=== PATIENT | female | born 1985 | race Caucasian/White ===

== ENCOUNTER 2017-08-24 08:40 | Emergency (ER) | payer MEDICAID, OTHER ==
[2017-08-24 08:56] VITALS: BP 123/76; PULSE 81; RESP 16; TEMP 97.8; O2SAT 100
--- NOTE | 2017-08-24 09:05 | ED PDOC ---
Lower Extremity Pain/Injury Time Seen by Provider: 08/24/17 08:45 Chief Complaint (Nursing): Lower Extremity Problem/Injury Chief Complaint (Provider): Lower Extremity Problem/Injury History Per: Patient History/Exam Limitations: no limitations Onset/Duration Of Symptoms: Days (x1 month) Additional Complaint(s): 31 y/o female presents to the emergency department with a complaint of a right foot pain x1 month. Patient states she injury her right foot and has been ambulating with pain and swelling since. Denies any further medical complaints. PMD: Dr. Leroy Conner MD Past Medical History Reviewed: Historical Data, Nursing Documentation, Vital Signs Vital Signs: Last Vital Signs Temp 97.8 F 08/24/17 08:52 Pulse 81 08/24/17 08:52 Resp 16 08/24/17 08:52 BP 123/76 08/24/17 08:52 Pulse Ox 100 08/24/17 08:52 - Medical History PMH: Arthritis, Asthma, Back Problems, Depression - Surgical History Surgical History: (2) - Family History Family History: States: Diabetes - Social History Current smoker - smoking cessation education provided: No Ex-Smoker (has not smoked in the last 12 months): Yes Alcohol: None Drugs: Denies - Home Medications Home Medications: Ambulatory Orders Medication Instructions Recorded Famotidine [Pepcid] 20 mg PO BID #10 tab 01/03/15 Ondansetron [Zofran] 4 mg PO Q8H PRN #10 tab 01/03/15 Cephalexin [cephalexin] 500 mg PO BID #20 cap 04/08/15 Ibuprofen [Motrin] 600 mg PO Q8 #30 tab 04/08/15 Naproxen 375 mg PO Q8 PRN #21 tab 08/05/15 Oxycodone HCl/Acetaminophen 1 tab PO Q6 PRN #10 tab 08/05/15 [Percocet 325 mg-5 mg] diaZEpam [Valium] 5 mg PO Q6 PRN #14 tab 08/05/15 Azithromycin [Zithromax Z-Aidan] 250 mg PO DAILY #1 packet 01/03/16 Albuterol HFA [Ventolin HFA 90 1 - 2 puff IH Q4 PRN #1 inhaler 04/14/16 mcg/actuation (8 g)] Azithromycin [Zithromax] 250 mg PO DAILY #6 tab 04/14/16 guaiFENesin [Mucinex LA] 600 mg PO TID PRN #15 tab 04/14/16 Naproxen [Naprosyn] 500 mg PO Q12H #20 tab 08/24/17 - Allergies Allergies/Adverse Reactions: Allergies Allergy/AdvReac Type Severity Reaction Status Date / Time No Known Allergies Allergy Verified 08/24/17 08:52 Review of Systems ROS Statement: Except As Marked, All Systems Reviewed And Found Negative Musculoskeletal: Positive for: Foot Pain (Right) Physical Exam - Reviewed Nursing Documentation Reviewed: Yes Vital Signs Reviewed: Yes - Physical Exam Appears: Positive for: Non-toxic, No Acute Distress Head Exam: Positive for: ATRAUMATIC, NORMAL INSPECTION, NORMOCEPHALIC Skin: Positive for: Normal Color, Warm, Dry Extremity: Positive for: Tenderness (right foot swelling and tenderness to the dorsum and lateral region. ), Swelling. Negative for: Other (No ecchymosis noted. ) Neurologic/Psych: Positive for: Alert, Oriented (x3) - ECG O2 Sat by Pulse Oximetry: 100 (RA) Pulse Ox Interpretation: Normal Medical Decision Making Medical Decision Making: Time: 09:00 Initial Impression: Right foot pain s/p injury Initial Plan: --Ankle x-ray --Right foot x-ray --Reevaluation Scribe Attestation: Documented by Jacqui Rebollar, acting as a scribe for Curtis Garcia MD. Provider Scribe Attestation: All medical record entries made by the Scribe were at my direction and personally dictated by me. I have reviewed the chart and agree that the record accurately reflects my personal performance of the history, physical exam, medical decision making, and the department course for this patient. I have also personally directed, reviewed, and agree with the discharge instructions and disposition. Disposition - Clinical Impression Clinical Impression: Foot fracture - Patient ED Disposition Is Patient to be Admitted: No Counseled Patient/Family Regarding: Studies Performed, Diagnosis, Need For Followup, Rx Given - Disposition Referrals: Podiatry Clinic [Outside] Disposition: Routine/Home Disposition Time: 10:59 Condition: FAIR Prescriptions: Naproxen [Naprosyn] 500 mg PO Q12H #20 tab Instructions: Foot Fracture in Adults (ED) Forms: [employer] (Italian)
--- NOTE | 2017-08-24 10:40 | CP.PCM.PN ---
Subjective - Date & Time of Evaluation Date of Evaluation: 08/24/17 Time of Evaluation: 10:36 - Subjective Subjective: 31 y/o female with no significant PMHx seen at bedside in ED complaining of pain on her right foot. Patient states that she tripped and fell about a month ago and since then she has been having pain. Patient states that she iced, and elevated her right foot and stayed off of it since then for about 2 weeks. Patient states that the pain got better after 2 weeks so she started walking on it again. Patient states that the pain comes and goes and describes her pain is like burning type. Patient graded her pain as 8/10 when its at its worst but denies of having that pain now. Patient denies of any other pedal complains at this time. Patient denies of any recent F/N/V/C/SOB/CP. PMHx: Depression, Anxiety PSHx: Allergies: N.K.D.A SHx: Denies of smoking, EtOH or illicit drug usage Objective - Vital Signs/Intake and Output Vital Signs (last 24 hours): Temp Pulse Resp BP Pulse Ox 97.8 F 81 16 123/76 100 08/24/17 08:52 08/24/17 08:52 08/24/17 08:52 08/24/17 08:52 08/24/17 09:05 - Constitutional Appears: Well, Non-toxic, No Acute Distress - Extremities Exam Additional comments: Right lower extremity focused exam: VASC: DP/PT pulses are palpable 2/4, Cap refill time: < 3 sec to all digits, Temp gradient: warm to cool from proximal to distal, +1 pitting edema noted on the dorsum of the foot DERM: No erythema, no open lesions, no clinical suspicion of active infection NEURO: Protective sensation grossly intact ORTHO: Minimal tenderness on palpation at the level of 3rd and 4th met base and cunieform joint, no pain on active or passive ROM at the level of MTPJ, no pain on palpation at the base of the 5th metatarsal - Neurological Exam Neurological Exam: Alert, Awake, Oriented x3 - Psychiatric Exam Psychiatric exam: Normal Affect, Normal Mood Assessment and Plan - Assessment and Plan (Free Text) Assessment: 31 y/o female seen at bedside in ED for right foot pain 1 month s/p a fall Plan: Patient seen and evaluated at bedside in ED Patient discussed in details with attending Dr. Latosha Valencia reviewed X-rays ordered/reviewed: - Diffuse increase in radiodensity noted on the dorsolateral aspect of the right foot indicating soft tissue edema, no break in the cortex noted on the bone, joints appear in proper alignment, no evidence of acute fracture. Possible MRI needed to evaluated further Patient given Shaver compressive dressing and advised to use surgical shoe Patient educated to ice and elevate the right lower extremity Patient educated to OTC Pain medication if the pain is not tolerated well Patient educated to follow up in podiatry clinic for further evaluation Patient demonstrated verbal understanding Thank you for the podiatry consult and allowing to take part in patient care.
--- NOTE | 2017-08-24 11:56 | RAD ---
PROCEDURE: Right Ankle Radiographs. HISTORY: trauma COMPARISON: None FINDINGS: BONES: Normal. No fracture. JOINTS: Normal. No osteoarthritis. Ankle mortise maintained. Talar dome intact SOFT TISSUES: Normal. OTHER FINDINGS: None. IMPRESSION: Normal right ankle radiographs.
--- NOTE | 2017-08-24 11:57 | RAD ---
PROCEDURE: Right Foot Radiographs. HISTORY: trauma COMPARISON: None. FINDINGS: BONES: Normal. No fracture. JOINTS: Normal. SOFT TISSUES: Normal. OTHER FINDINGS: None. IMPRESSION: Normal right foot radiographs.
== END 2017-08-24 11:05 | disposition home or self-care (01) ==
LOC: H.ER 08:40
DX: S92.901A Unspecified fracture of right foot, initial encounter for closed fracture (principal); W19.XXXA Unspecified fall, initial encounter; Y92.89 Other specified places as the place of occurrence of the external cause

== ENCOUNTER 2017-09-02 12:52 | Emergency (ER) | payer MEDICAID ==
[2017-09-02 12:56] VITALS: BP 108/66; PULSE 80; RESP 18; TEMP 98.4; O2SAT 99
--- NOTE | 2017-09-02 13:13 | ED PDOC ---
HPI: Allergic Reaction Time Seen by Provider: 09/02/17 12:57 Chief Complaint (Nursing): Abnormal Skin Integrity Chief Complaint (Provider): Allergic reaction History Per: Patient History/Exam Limitations: no limitations Current Symptoms Are (Timing): Still Present Home/EMS Treatment: Benadryl Additional Complaint(s): 31 year old female presents to ED with irritation and redness to right barbara- orbital region s/p contact with jalepeno oil 2 days ago while at [employer]. Patient flushed her eye immediately and has been taking benadryl since then but this has not helped. She denies vision change or vision loss. No FB sensation to right eye. She states skin around right eye is very itchy. No fever or chills. PMD: Dr. Ubaldo Khan MD Past Medical History Reviewed: Historical Data, Nursing Documentation, Vital Signs Vital Signs: Last Vital Signs Temp 98.4 F 09/02/17 12:54 Pulse 80 09/02/17 12:54 Resp 18 09/02/17 12:54 BP 108/66 09/02/17 12:54 Pulse Ox 99 09/02/17 12:54 - Medical History PMH: Asthma, Back Problems, Depression - Surgical History Surgical History: (2) - Family History Family History: States: No Known Family Hx, Diabetes - Living Arrangements Living Arrangements: With Family - Social History Current smoker - smoking cessation education provided: No Alcohol: None Drugs: Denies - Home Medications Home Medications: Ambulatory Orders Medication Instructions Recorded Famotidine [Pepcid] 20 mg PO BID #10 tab 01/03/15 Ondansetron [Zofran] 4 mg PO Q8H PRN #10 tab 01/03/15 Cephalexin [cephalexin] 500 mg PO BID #20 cap 04/08/15 Ibuprofen [Motrin] 600 mg PO Q8 #30 tab 04/08/15 Naproxen 375 mg PO Q8 PRN #21 tab 08/05/15 Oxycodone HCl/Acetaminophen 1 tab PO Q6 PRN #10 tab 08/05/15 [Percocet 325 mg-5 mg] diaZEpam [Valium] 5 mg PO Q6 PRN #14 tab 08/05/15 Azithromycin [Zithromax Z-Aidan] 250 mg PO DAILY #1 packet 01/03/16 Albuterol HFA [Ventolin HFA 90 1 - 2 puff IH Q4 PRN #1 inhaler 04/14/16 mcg/actuation (8 g)] Azithromycin [Zithromax] 250 mg PO DAILY #6 tab 04/14/16 guaiFENesin [Mucinex LA] 600 mg PO TID PRN #15 tab 04/14/16 Naproxen [Naprosyn] 500 mg PO Q12H #20 tab 08/24/17 Prednisone 50 mg PO DAILY #5 tablet 09/02/17 - Allergies Allergies/Adverse Reactions: Allergies Allergy/AdvReac Type Severity Reaction Status Date / Time No Known Allergies Allergy Verified 08/24/17 08:52 Review of Systems ROS Statement: Except As Marked, All Systems Reviewed And Found Negative Constitutional: Negative for: Fever Eyes: Positive for: Other (right eye region skin irritation). Negative for: Vision Change Neurological: Negative for: Headache, Dizziness Physical Exam - Reviewed Nursing Documentation Reviewed: Yes Vital Signs Reviewed: Yes - Physical Exam Appears: Positive for: No Acute Distress Head Exam: Positive for: ATRAUMATIC, NORMAL INSPECTION, NORMOCEPHALIC Skin: Positive for: Normal Color, Warm, Dry Eye Exam: Positive for: EOMI, PERRL, Periorbital swelling (Right periorbital erythema and edema consistent with localized allergic reaction. ), Other (no discharge or FB to right eye). Negative for: Nystagmus, Periorbital tenderness , Conjunctival injection, Scleral icterus Neurologic/Psych: Positive for: Alert, Oriented (x3) - ECG O2 Sat by Pulse Oximetry: 99 (RA) Pulse Ox Interpretation: Normal - Progress ED Course And Treament: [facility] Time: 13:01 Initial Impression: Allergic Reaction Initial Plan: --Urine Preg --Predisone 60 mg PO --Reevaluation --Patient advised to apply warm compresses with epsom salt to the right eye and to continue antihistamine medications such as Benadryl and Claritin to help with itch and swelling. --Will be discharged home with course of Predisone medication (1st dose given in the emergency room). Scribe Attestation: Documented by Jacqui Rebollar, acting as a scribe for Radha Luke PA-C. Provider Scribe Attestation: All medical record entries made by the Scribe were at my direction and personally dictated by me. I have reviewed the chart and agree that the record accurately reflects my personal performance of the history, physical exam, medical decision making, and the department course for this patient. I have also personally directed, reviewed, and agree with the discharge instructions and disposition. Disposition - Clinical Impression Clinical Impression: Allergic reaction - Patient ED Disposition Is Patient to be Admitted: No Counseled Patient/Family Regarding: Diagnosis, Need For Followup, Rx Given - Disposition Referrals: Bill Conner MD [Staff Provider] - Disposition: Routine/Home Disposition Time: 13:39 Condition: STABLE Additional Instructions: Continue with Claritin and Benadryl for itch relief. Take prescription as directed. Follow up in 1-2 days with primary doctor Prescriptions: Prednisone 50 mg PO DAILY #5 tablet Instructions: General Allergic Reaction (ED) Forms: [employer] (Dominican)
== END 2017-09-02 14:18 | disposition home or self-care (01) ==
LOC: H.ER 12:52
DX: T78.40XA Allergy, unspecified, initial encounter (principal)

== ENCOUNTER 2018-05-18 21:32 | Emergency (ER) | payer MEDICAID ==
[2018-05-18 21:53] VITALS: BP 118/81; PULSE 89; RESP 18; O2SAT 99
--- NOTE | 2018-05-18 22:00 | ED PDOC ---
HPI: CCC, URI, Sore Throat Time Seen by Provider: 05/18/18 21:55 Chief Complaint (Nursing): ENT Problem Chief Complaint (Provider): sore throat, left ear pain History Per: Patient Additional Complaint(s): 32-year-old female presents with left ear pain and sore throat for 2 days. Patient states her daughter recently was treated for strep. Patient has not taken anything for pain relief. She is tolerating liquids and solids but has difficulty swallowing. She also has mild dry cough. PMD: Dr. Conner Past Medical History Reviewed: Historical Data, Nursing Documentation, Vital Signs Vital Signs: Last Vital Signs Temp 98.4 F 05/18/18 21:51 Pulse 89 05/18/18 21:51 Resp 18 05/18/18 21:51 BP 118/81 05/18/18 21:51 Pulse Ox 99 05/18/18 22:03 - Medical History PMH: Arthritis, Asthma, Back Problems, Depression - Surgical History Surgical History: (2) - Family History Family History: States: Diabetes - Living Arrangements Living Arrangements: With Family - Social History Current smoker - smoking cessation education provided: No Alcohol: None Drugs: Denies - Home Medications Home Medications: Ambulatory Orders Medication Instructions Recorded Famotidine [Pepcid] 20 mg PO BID #10 tab 01/03/15 Ondansetron [Zofran] 4 mg PO Q8H PRN #10 tab 01/03/15 Cephalexin [cephalexin] 500 mg PO BID #20 cap 04/08/15 Ibuprofen [Motrin] 600 mg PO Q8 #30 tab 04/08/15 Naproxen 375 mg PO Q8 PRN #21 tab 08/05/15 Oxycodone HCl/Acetaminophen 1 tab PO Q6 PRN #10 tab 08/05/15 [Percocet 325 mg-5 mg] diaZEpam [Valium] 5 mg PO Q6 PRN #14 tab 08/05/15 Azithromycin [Zithromax Z-Aidan] 250 mg PO DAILY #1 packet 01/03/16 Albuterol HFA [Ventolin HFA 90 1 - 2 puff IH Q4 PRN #1 inhaler 04/14/16 mcg/actuation (8 g)] Azithromycin [Zithromax] 250 mg PO DAILY #6 tab 04/14/16 guaiFENesin [Mucinex LA] 600 mg PO TID PRN #15 tab 04/14/16 Naproxen [Naprosyn] 500 mg PO Q12H #20 tab 08/24/17 Prednisone 50 mg PO DAILY #5 tablet 09/02/17 Amoxicillin/Clavulanate [Augmentin 1 tab PO BID #14 tab 05/18/18 875 MG-125 MG] - Allergies Allergies/Adverse Reactions: Allergies Allergy/AdvReac Type Severity Reaction Status Date / Time No Known Allergies Allergy Verified 08/24/17 08:52 Review of Systems ROS Statement: Except As Marked, All Systems Reviewed And Found Negative Constitutional: Negative for: Fever, Chills ENT: Positive for: Ear Pain (left), Throat Pain, Throat Swelling Cardiovascular: Negative for: Chest Pain Respiratory: Positive for: Cough (dry) Gastrointestinal: Negative for: Nausea, Vomiting Neurological: Negative for: Headache, Dizziness - Laboratory Results Urine POC: Negative (patient declined test, states she is certain she is not ) - ECG O2 Sat by Pulse Oximetry: 99 Pulse Ox Interpretation: Normal Medical Decision Making Medical Decision Making: Impression: Otitis media and pharyngitis. Plan: PO motrin Decadron IM 8 mg Prescriptions given for Augmentin, advised NSAIDs for pain relief, rest, fluids and follow up with PMD in 2-3 days. Disposition - Clinical Impression Clinical Impression: Tonsillitis, Otitis media - Patient ED Disposition Is Patient to be Admitted: No Counseled Patient/Family Regarding: Diagnosis, Need For Followup, Rx Given - Disposition Referrals: Bill Conner MD [Family Provider] - Disposition: Routine/Home Disposition Time: 22:18 Condition: STABLE Additional Instructions: Take prescription meds as directed. Take [id number] Motrin for pain as needed. Follow-up with primary doctor in 2-3 days. Prescriptions: Amoxicillin/Clavulanate [Augmentin 875 MG-125 MG] 1 tab PO BID #14 tab Instructions: Ear Infections (Otitis Media), Sore Throat, Adult (DC) Forms: [employer] (Kinyarwanda)
[2018-05-18] MEDS ORDERED: Dexamethasone 4 mg/1 ml IM STA (22:03)
[2018-05-18 22:46] VITALS: TEMP 98.3
== END 2018-05-18 22:45 | disposition home or self-care (01) ==
LOC: H.ER 21:32
DX: J03.90 Acute tonsillitis, unspecified (principal); H66.92 Otitis media, unspecified, left ear; J45.909 Unspecified asthma, uncomplicated; Z86.59 Personal history of other mental and behavioral disorders
CPT/HCPCS: 96372; 99283; J1100

== ENCOUNTER 2018-06-06 18:09 | Emergency (ER) | payer MEDICAID ==
[2018-06-06 18:37] VITALS: BP 137/82; PULSE 89; RESP 16; O2SAT 100
--- NOTE | 2018-06-06 19:24 | ED PDOC ---
HPI: Female Pain Time Seen by Provider: 06/06/18 18:53 Chief Complaint (Nursing): Female Genitourinary History Per: Patient Onset/Duration Of Symptoms: Days (3) Current Symptoms Are (Timing): Still Present Severity: Moderate Quality Of Discomfort: Burning Additional Complaint(s): Vaginal burning and itching x 3 days. Denies vaginal discharge. no fever. No dysuria. No back pain Abnormal Vaginal Bleeding: No Past Medical History Vital Signs: Last Vital Signs Temp 99.9 F H 06/06/18 18:34 Pulse 89 06/06/18 18:34 Resp 16 06/06/18 18:34 BP 137/82 06/06/18 18:34 Pulse Ox 100 06/06/18 18:34 - Medical History PMH: Arthritis, Asthma, Back Problems, Depression - Surgical History Surgical History: (2) - Family History Family History: States: Diabetes - Home Medications Home Medications: Ambulatory Orders Medication Instructions Recorded Famotidine [Pepcid] 20 mg PO BID #10 tab 01/03/15 Ondansetron [Zofran] 4 mg PO Q8H PRN #10 tab 01/03/15 Cephalexin [cephalexin] 500 mg PO BID #20 cap 04/08/15 Ibuprofen [Motrin] 600 mg PO Q8 #30 tab 04/08/15 Naproxen 375 mg PO Q8 PRN #21 tab 08/05/15 Oxycodone HCl/Acetaminophen 1 tab PO Q6 PRN #10 tab 08/05/15 [Percocet 325 mg-5 mg] diaZEpam [Valium] 5 mg PO Q6 PRN #14 tab 08/05/15 Azithromycin [Zithromax Z-Aidan] 250 mg PO DAILY #1 packet 01/03/16 Albuterol HFA [Ventolin HFA 90 1 - 2 puff IH Q4 PRN #1 inhaler 04/14/16 mcg/actuation (8 g)] Azithromycin [Zithromax] 250 mg PO DAILY #6 tab 04/14/16 guaiFENesin [Mucinex LA] 600 mg PO TID PRN #15 tab 04/14/16 Naproxen [Naprosyn] 500 mg PO Q12H #20 tab 08/24/17 Prednisone 50 mg PO DAILY #5 tablet 09/02/17 Amoxicillin/Clavulanate [Augmentin 1 tab PO BID #14 tab 05/18/18 875 MG-125 MG] Miconazole Nitrate [Monistat 7] 44 gm VG DAILY #7 cmb.pf.crm 06/06/18 - Allergies Allergies/Adverse Reactions: Allergies Allergy/AdvReac Type Severity Reaction Status Date / Time No Known Allergies Allergy Verified 06/06/18 18:34 Review of Systems Constitutional: Negative for: Fever Gastrointestinal: Negative for: Abdominal Pain Genitourinary Female: Positive for: Other (Vaginal burning and itching). Negative for: Dysuria, Frequency Physical Exam - Physical Exam Appears: Positive for: Non-toxic, No Acute Distress Skin: Positive for: Normal Color, Warm, DRY Gastrointestinal/Abdominal: Positive for: Bowel Sounds, Soft. Negative for: Tenderness Pelvic Exam: Positive for: External Exam Normal. Negative for: Discharge, Mass , Tender W/Cervical Motion, Tender Adnexa - ECG O2 Sat by Pulse Oximetry: 100 Disposition - Clinical Impression Clinical Impression: Vaginal candidiasis - Patient ED Disposition Is Patient to be Admitted: No Counseled Patient/Family Regarding: Studies Performed, Diagnosis, Need For Followup, Rx Given - Disposition Referrals: Yoel Salazar MD [Staff Provider] - Disposition: Routine/Home Disposition Time: 19:25 Condition: FAIR Prescriptions: Miconazole Nitrate [Monistat 7] 44 gm VG DAILY #7 cmb.pf.crm Instructions: Vaginal Yeast Infection (DC)
[2018-06-06 19:49] VITALS: TEMP 98.6
== END 2018-06-06 19:55 | disposition home or self-care (01) ==
LOC: H.ER 18:09
DX: B37.3 Candidiasis of vulva and vagina (principal)